=== PATIENT | male | born 1980 | race African-American/Black ===

== ENCOUNTER 2017-09-02 17:23 | Outpatient (CLI) | payer BC ==
[2017-09-02 18:01] LABS: #Basophils 0.1 thou/uL (0.0-0.2); #Eosinphils 0.5 thou/uL (0.0-0.7); #Lymphocytes 2.1 thou/uL (1.20-3.40); #Monocytes 0.8 thou/uL (0.11-0.59); #Neutrophils 3.8 thou/uL (1.40-6.50); %Basophils 1.9 % (0.0-1.0); %Eosinophils 7.1 % (0.0-10.0); %Lymphocytes 28.8 % (21.0-51.0); %Monocytes 10.9 % (0.0-10.0); Mean Platelet Volume 9.9 fL (7.4-10.4); Red Blood Cell (RBC) Count 4.91 mill/uL (4.70-6.10); White Blood Cell (WBC) Count 7.4 thou/uL (4.8-10.8)
[2017-09-02 18:06] LABS: Hemoglobin A1c 5.7 % (4.0-6.0)
[2017-09-02 18:20] LABS: ALT (SGPT) 27 U/L (8-55); AST (SGOT) 25 U/L (5-34); Alkaline Phosphatase 63 U/L (40-150); Anion Gap 12 mmol/L (10-20); BUN (Urea Nitrogen) 18 mg/dL (8.9-20.6); Bilirubin, Direct 0.2 mg/dL (0.1-0.3); Bilirubin, Total 0.5 mg/dL (0.2-1.2); Calc. Creatinine Clearance 0 mL/min (70-130); Calcium 9.8 mg/dL (7.8-10.44); Carbon Dioxide 27 mmol/L (22-29); Chloride 102 mmol/L (98-107); Estimated GFR-MDRD Greater than 90; Globulin 3.3 g/dL (2.4-3.5); Protein, Total 7.4 g/dL (6.0-8.3)
--- NOTE | 2017-09-02 19:32 | RAD ---
CHEST TWO VIEW 09/02/17 HISTORY: Preop. COMPARISON: None. FINDINGS: The lungs are clear. No pneumothorax or effusion. The cardiac silhouette and mediastinal contours are within normal limits. No acute osseous abnormality. IMPRESSION: No acute intrathoracic abnormality. POS: [facility]
== END 2017-09-02 17:24 | disposition home or self-care (01) ==
LOC: LABBT 17:23
PROVIDERS: ATTEND Surgery
DX: Z01.818 Encounter for other preprocedural examination (principal); E66.01 Morbid (severe) obesity due to excess calories
CPT/HCPCS: 71020; 80053; 80076; 83036; 85025; 93005; 93010

== ENCOUNTER 2017-09-07 07:10 | Inpatient (IN) | payer BC ==
[2017-09-02 17:46] VITALS: BMI 59.6
[2017-09-07] MEDS ORDERED: Heparin 5,000 UNITS/ML VIAL ONE (08:26)
[2017-09-07] MEDS ORDERED: CEFAZOLIN/Water 2 GM/20 ML SYRINGE ONE (08:26)
[2017-09-07] MEDS ORDERED: Midazolam HCl 2 mg/2 ml Vial ONE (09:17)
[2017-09-07] MEDS ORDERED: Fentanyl 100 MCG/2 ML VIAL ONE (09:17)
[2017-09-07] MEDS ORDERED: Fentanyl 250 MCG/5 ML VIAL ONE (09:17)
[2017-09-07] MEDS ORDERED: Bupivacaine/Epinephrine 0.25% 30 ML VIAL ONE (09:18)
[2017-09-07] MEDS ORDERED: Meperidine HCl/PF 25 MG/ML VIAL SLOW IVP PRN (10:09)
[2017-09-07] MEDS ORDERED: Ketorolac Tromethamine 30 MG/ML VIAL IVP PRN ×2 (10:09→16:48)
[2017-09-07] MEDS ORDERED: diphenhydrAMINE 50 MG/ML VIAL IM PRN (10:09)
[2017-09-07] MEDS ORDERED: Morphine Sulfate 2 MG/ML SYRINGE SLOW IVP PRN (10:09)
[2017-09-07] MEDS ORDERED: Ondansetron HCl/PF 4 MG/2 ML Vial IVP PRN ×2 (10:09→11:07)
[2017-09-07] MEDS ORDERED: diphenhydrAMINE 25 MG CAP PO PRN (10:09)
[2017-09-07] MEDS ORDERED: Naloxone HCl 0.4 mg/ml Vial IV PRN (10:09)
[2017-09-07] MEDS ORDERED: Fentanyl 5000 MCG/250 ML CADD IVPB PRN (10:09)
[2017-09-07] MEDS ORDERED: Promethazine HCl 25 MG/ML VIAL IM PRN ×2 (10:09→11:07)
[2017-09-07] MEDS ORDERED: HYDROmorphone 2 MG/ML VIAL SLOW IVP PRN (10:09)
[2017-09-07] MEDS ORDERED: diphenhydrAMINE 50 MG/ML VIAL IVP PRN ×2 (10:09→11:07)
[2017-09-07] MEDS ORDERED: Zolpidem Tartrate 5 MG TAB PO PRN (10:09)
[2017-09-07] MEDS ORDERED: Promethazine HCl 25 MG/ML VIAL SLOW IVP PRN (10:09)
[2017-09-07] MEDS ORDERED: Communication Order-Pharmacy FS SCH (10:15)
[2017-09-07] MEDS ORDERED: Dextrose 5% in Water 1,000 ML IV PRN (11:07)
[2017-09-07] MEDS ORDERED: hydrALAZINE 20 MG/ML VIAL SLOW IVP PRN (11:07)
[2017-09-07] MEDS ORDERED: Dextrose 50% Abboject 50 ML SYRINGE SLOW IVP PRN (11:07)
--- NOTE | 2017-09-07 11:16 | OP ---
PREOPERATIVE DIAGNOSIS: Morbid obesity. SURGEON: Blaine Nicholson M.D. PROCEDURE: Laparoscopic sleeve gastrectomy with esophagogastroscopy. INDICATIONS: A 36-year-old male who has been morbidly obese for many years and attempted multiple we ight loss programs without success. FINDINGS: A 36-[place] bougie used. PROCEDURE IN DETAIL: After informed consent was obtained, the patient was taken to the operating alicia m and given general endotracheal anesthesia, placed in the supine position. The abdomen was prepped and draped in the usual fashion. Local anesthesia infiltrated subcutaneously and deep. A 12 mm inci tremaine was performed 8 inches below the xiphoid slightly to the left. Veress needle inserted. Drop te st performed. Pneumoperitoneum was created to a volume of 2 liters of carbon dioxide. Utilizing a b ladeless 12 mm trocar and 0 degree laparoscope, direct visual entry in the abdominal cavity was perfo rmed. Pneumoperitoneum was created to a pressure of 15 mmHg. The patient was placed in steep reverse Trendelenburg position. Nathansen liver retractor inserted. Left lobe of liver retracted superiorl y. Pylorus identified a 12 mm port placed on the right beneath it and two 12s placed left subcostal. The omentum was taken off the greater curvature 5 cm from the pylorus utilizing the LigaSure. Shor t gastrics divided with the LigaSure and left crura defined with LigaSure. A 36-[place] bougie insert ed and directed into the antrum. The linear 60 mm green load stapler used to divide the antrum to th e bougie, gold load along the bougie, and a series of blues through the angle of His. Intraoperative endoscopy was performed. The video endoscope inserted under direct vision and the staple line inspe cted. There was no bleeding. Staple line then tested by inflating the new stomach with pressurized air under water. There was no air leak. Stomach decompressed. Scope removed. The remnant stomach removed from the abdomen through the left lateral port site. Fascia closed with 0 Vicryl suture and the GraNee needle. Trocars and retractors removed after hemostasis assured. Skin closed with interr upted 4-0 Rapide. Dermabond applied. The patient tolerated the procedure well and transferred [facility] in good condition. Sponge and needle count verified correct x2.
[2017-09-07] MEDS ORDERED: Promethazine HCl 25 MG/ML VIAL ONE (12:07)
[2017-09-07] MEDS ORDERED: Fentanyl 20 MCG/ML 250 ML ONE (12:10)
[2017-09-07] MEDS ORDERED: D5 1/2 NS w/20 mEq KCL 1,000 ML ONE (15:01)
[2017-09-07] MEDS ORDERED: Propofol 200 MG/20 ML VIAL ONE (16:24)
[2017-09-07] MEDS ORDERED: Lidocaine 1% PF 5 ML VIAL ONE (16:24)
[2017-09-07] MEDS ORDERED: Ketorolac Tromethamine 30 MG/ML VIAL ONE (16:24)
[2017-09-07] MEDS ORDERED: Glycopyrrolate 0.2 MG/ML 5 ML SYRINGE ONE (16:24)
[2017-09-07] MEDS ORDERED: Dexamethasone 20 MG/5 ML VIAL ONE (16:24)
[2017-09-07] MEDS ORDERED: Ondansetron HCl/PF 4 MG/2 ML Vial ONE (16:24)
[2017-09-07] MEDS: CEFAZOLIN/Water 2 GM/20 ML SYRINGE SLOW IVP SCH (18:12)
[2017-09-07] MEDS: D5 1/2 NS w/20 mEq KCL 1,000 ML IV SCH (18:19)
[2017-09-08] MEDS: D5 1/2 NS w/20 mEq KCL 1,000 ML IV SCH ×2 (00:05→03:41)
[2017-09-08] MEDS: CEFAZOLIN/Water 2 GM/20 ML SYRINGE SLOW IVP SCH (02:17)
[2017-09-08 04:42] LABS: #Basophils 0.1 thou/uL (0.0-0.2); #Lymphocytes 1.2 thou/uL (1.20-3.40); #Monocytes 1.1 thou/uL (0.11-0.59); #Neutrophils 7.9 thou/uL (1.40-6.50); %Basophils 0.7 % (0.0-1.0); %Eosinophils 0.1 % (0.0-10.0); %Lymphocytes 11.7 % (21.0-51.0); Hematocrit 44.5 % (42.0-52.0); Mean Platelet Volume 10.7 fL (7.4-10.4); Red Blood Cell (RBC) Count 4.93 mill/uL (4.70-6.10); White Blood Cell (WBC) Count 10.3 thou/uL (4.8-10.8)
[2017-09-08 05:05] LABS: Anion Gap 11 mmol/L (10-20); BUN (Urea Nitrogen) 10 mg/dL (8.9-20.6); Calc. Creatinine Clearance 299 mL/min (70-130); Calcium 9.3 mg/dL (7.8-10.44); Carbon Dioxide 28 mmol/L (22-29); Chloride 102 mmol/L (98-107); Estimated GFR-MDRD Greater than 90
[2017-09-08] MEDS ORDERED: Enoxaparin Sodium 40 MG/0.4 ML SYRINGE SC SCH (09:00)
[2017-09-08] MEDS ORDERED: Pantoprazole 40 MG VIAL IVP SCH (09:00)
--- NOTE | 2017-09-08 10:44 | RAD ---
SINGLE CONTRAST UPPER GI: History: 36-year-old male status post gastric sleeve for 15 ml Gastrografin swallow. Fluoroscopy time: 0.4 minutes, dose 29.916 Gycm2. FINDINGS: Patient swallowed 15 ml of Gastrografin orally. Contrast media progressed through the distal esophagu s and post-operative stomach without evidence for obstruction or extravasation. IMPRESSION: Unremarkable post gastric sleeve Gastrografin swallow. POS: [facility]
--- NOTE | 2017-09-08 14:00 | DIS ---
DISCHARGE DIAGNOSIS: Morbid obesity. PROCEDURES DURING ADMISSION: Laparoscopic sleeve gastrectomy, intraoperative esophagogastroscopy, po stoperative Gastrografin swallow. HOSPITAL COURSE: The patient was admitted, taken to the operating room where he underwent a sleeve g astrectomy. Postoperatively, he has done well. His x-ray was fine, he was tolerating liquids well. He is discharged home in good condition on hydrocodone and Zofran. He will follow up with me in 2 weeks.
[2017-09-08] MEDS ORDERED: Iopamidol 300 61% 30 ML VIAL ONE (14:11)
[2017-09-08] MEDS ORDERED: Hydrocodone-Acetamin 15 ML UDCUP PO PRN (14:44)
[2017-09-08 15:00] VITALS: BP 123/71; TEMP 98.9
[2017-09-17] MEDS ORDERED: Hydrocodone-Acetamin 15 ML UDCUP PO PRN (11:07)
== END 2017-09-08 13:15 | disposition home or self-care (01) | DRG 621 ==
LOC: SDC 07:10 → SURG A 14:43
PROVIDERS: ADMIT Surgery; ATTEND Surgery
PROC: 0DB64Z3 Excision of Stomach, Percutaneous Endoscopic Approach, Vertical (ICD-10-PCS; principal; 2017-09-08)
DX: E66.01 Morbid (severe) obesity due to excess calories (principal); Z68.43 Body mass index [BMI] 50.0-59.9, adult
CPT/HCPCS: 36415; 74241; 80048; 85025; 88307; 88312; 94760; 96374; C9113; J0131; J1100; J1644; J1650; J1885; J2001; J2250; J2405; J2550; J2704; J3010

== ENCOUNTER 2025-09-14 05:59 | Observation (INO) | payer BC, OTHER, SELFPAY ==
[2025-09-14 07:22] LABS: Bacteria/HPF None Seen HPF (None Seen); CAUTI Indications for Culture Alt mental st,lethar; Glucose, Urine (Dipstick) Normal (Negative); Leukocyte Negative Leu/uL (Negative); Protein, Urine (Dipstick) Negative (Neg-Trace); RBC/HPF 0-3 HPF (0-3); Specific Gravity, Urine 1.007 (1.002-1.036); WBC/HPF 0-3 HPF (0-3)
[2025-09-14 07:26] LABS: Urine Culture Reflex No No
[2025-09-14 08:20] LABS: #Basophils 0.03 10x3/uL (0.0-0.2); #Eosinophils 0.74 10x3/uL (0.0-0.7); #Monocytes 0.79 10x3/uL (0.11-0.59); #Neutrophils 2.36 10x3/uL (1.40-6.50); %Basophils 0.6 % (0.0-1.0); %Eosinophils 13.7 % (0.0-10.0); %Lymphocytes 27.1 % (21.0-51.0); %Monocytes 14.7 % (0.0-10.0); %Neutrophils 43.7 % (42.0-75.0); Hematocrit 48.7 % (42.0-52.0); Hemoglobin 14.9 g/dL (14.0-18.0); Mean Corpuscular Hemoglobin 27.0 pg (27.0-31.0); Mean Corpuscular Volume 88.2 fL (78.0-98.0); Platelet Count 179 10x3/uL (130-400); Red Blood Cell (RBC) Count 5.52 mill/uL (4.70-6.10); White Blood Cell (WBC) Count 5.39 10x3/uL (4.8-10.8)
[2025-09-14 08:26] LABS: ALT (SGPT) 14 U/L (Less than 45); AST (SGOT) 28 U/L (11-34); Albumin 4.0 g/dL (3.1-4.5); Alkaline Phosphatase 50 U/L (40-110); Anion Gap 13 mmol/L (10-20); BUN (Urea Nitrogen) 11 mg/dL (8.9-20.6); Bilirubin, Total 0.5 mg/dL (0.3-1.2); Calc. Creatinine Clearance 0 mL/min (70-130); Calcium 9.3 mg/dL (7.8-10.44); Carbon Dioxide 27 mmol/L (22-29); Chloride 104 mmol/L (98-107); Globulin 2.9 g/dL (2.4-3.5); Glucose 70 mg/dL (70-105); Magnesium 1.7 mg/dL (1.6-2.6); Potassium 3.6 mmol/L (3.5-5.1); Sodium 140 mmol/L (136-145)
[2025-09-14 08:28] LABS: INR-International Normal Ratio 1.0; PTT 29.8 sec (22.9-36.1); Prothrombin Time 13.7 sec (12.0-14.7)
[2025-09-14] MEDS ORDERED: Ondansetron PF 4 MG/2 ML Vial IVP PRN (08:45)
[2025-09-14] MEDS ORDERED: Acetaminophen 325 MG TAB PO PRN (08:45)
[2025-09-14] MEDS ORDERED: Aspirin Chewable 81 MG TAB ONE (11:24)
[2025-09-14] MEDS ORDERED: Enoxaparin 40 MG (0.4 mL) SYRINGE ONE (11:24)
[2025-09-14] MEDS: Aspirin 81 mg Enteric Coated Tablet PO SCH (11:34)
[2025-09-14] MEDS: Enoxaparin 40 MG (0.4 mL) SYRINGE SC SCH (11:34)
[2025-09-14 11:35] VITALS: BMI 40.6
[2025-09-14 11:36] VITALS: BP 149/93; TEMP 98
== END 2025-09-14 13:45 | disposition home or self-care (01) ==
LOC: ERS 05:59 → ERHOLD 09:52
PROVIDERS: ADMIT Internal Medicine; ATTEND Internal Medicine
DX: G45.9 Transient cerebral ischemic attack, unspecified (principal); F17.210 Nicotine dependence, cigarettes, uncomplicated; Z98.84 Bariatric surgery status; Z79.82 Long term (current) use of aspirin
CPT/HCPCS: 36416; 70450; 70551; 80053; 81001; 83735; 84484; 85025; 85610; 85730; 93005; 93880; G0378; J1650